=== PATIENT | male | born 1935 | race Caucasian/White ===

== ENCOUNTER 2023-05-13 01:01 | Inpatient (IN) | payer MEDICARE ==
[~2023-05-13] VITALS: Ht 182.9 cm; Wt 70.1 kg
[2023-05-13 03:00] VITALS: BP 135/99; TEMP 97.7; O2SAT 95
[2023-05-13] MEDS ORDERED: DUTA0.5C PO (03:23)
[2023-05-13] MEDS ORDERED: ESCI10TA PO (03:32)
[2023-05-13] MEDS ORDERED: LORA-259 PO (03:35)
[2023-05-13] MEDS ORDERED: TAMS-12 PO (03:35)
[2023-05-13] MEDS ORDERED: FAMO-131 PO (03:37)
[2023-05-13] MEDS ORDERED: MEMA1CAP3 PO (03:37)
[2023-05-13] MEDS ORDERED: PRAV20TA4 PO (03:40)
[2023-05-13] MEDS ORDERED: TRAZ-182 PO (03:41)
[2023-05-13] MEDS ORDERED: IV 1/2NS 1000 ML 1,000 ML IV PRN (07:00)
[2023-05-13] MEDS ORDERED: Z GUARD REMEDY 4 OZ OINT TP PRN (07:00)
[2023-05-13] MEDS ORDERED: MAG HYDROX/AL HYDROX/SIMETH 30 ML UDC PO PRN (07:00)
[2023-05-13] MEDS ORDERED: ONDANSETRON HCL/PF 4 MG/2 ML VIAL IVP PRN (07:00)
[2023-05-13] MEDS ORDERED: MAGNESIUM HYDROXIDE 30 ML UDC PO PRN (07:00)
[2023-05-13] MEDS ORDERED: ACETAMINOPHEN 325 MG TABLET PO PRN (07:00)
[2023-05-13 08:00] VITALS: BP 124/71; TEMP 98.8; O2SAT 95
[2023-05-13] MEDS: ATORVASTATIN 10 MG TABLET PO SCH (08:17)
[2023-05-13] MEDS: PANTOPRAZOLE 40 MG TABLET.DR PO SCH (08:17)
[2023-05-13] MEDS: DUTASTERIDE (0.5 MG) 0.5 MG CAPSULE PO SCH (08:17)
[2023-05-13] MEDS ORDERED: TAMSULOSIN 0.4 MG CAP.SR.24H PO SCH (09:00)
[2023-05-13] MEDS ORDERED: MULT-213 PO (09:20)
[2023-05-13 10:36] LABS: BASOPHILS % (AUTO) 0.3 % (0.0-2.0); EOSINOPHILS # (AUTO) 0.2 K/uL (0.0-0.7); HEMATOCRIT 46 % (39-51); HEMOGLOBIN 14.7 g/dL (13.5-17.5); LYMPHOCYTES % (AUTO) 33.6 % (20.0-44.0); MEAN CORPUSCULAR HEMOGLOBIN 32 PG (26.0-33.0); MEAN CORPUSCULAR HGB CONC 32 g/dl (31.0-36.0); MEAN CORPUSCULAR VOLUME 98 fL (80-96); MONOCYTES # (AUTO) 1.1 K/uL (0.1-1.30); MONOCYTES % (AUTO) 7.1 % (2.0-12.0); NEUTROPHILS # (AUTO) 8.7 K/uL (1.8-8.9); PLATELET COUNT (AUTO) 330 K/uL (150-450); RED BLOOD CELL COUNT(AUTO) 4.63 MIL/uL (4.5-6.0); RED CELL DISTRIBUTION WIDTH 13.1 % (11.5-15.0); WHITE BLOOD COUNT (AUTO) 14.9 K/uL (4.3-11.0)
[2023-05-13 11:16] LABS: ALANINE AMINOTRANSFERASE 58 U/L (12-78); ALKALINE PHOSPHATASE 122 U/L (46-116); ASPARTATE AMINOTRANSFERASE 32 U/L (15-37); BILIRUBIN,TOTAL 0.6 mg/dL (0.2-1.0); CALCIUM, SERUM 9.3 mg/dL (8.5-10.1); CARBON DIOXIDE 28 mmol/L (21-32); CHLORIDE 124 mmol/L (98-107); CREATININE 1.1 mg/dL (0.6-1.3); GLUCOSE 99 mg/dL (74-106); MAGNESIUM 2.2 mg/dL (1.8-2.4); PHOSPHORUS 3.7 mg/dL (2.5-4.9); POTASSIUM 3.7 mmol/L (3.5-5.1); TOTAL PROTEIN, SERUM 6.6 g/dL (6.4-8.2); UREA NITROGEN, BLOOD 40 mg/dL (7-18)
[2023-05-13 11:22] LABS: SODIUM SERUM 160 mmol/L (136-145)
[2023-05-13 12:00] VITALS: BP 120/70; TEMP 98.4; O2SAT 99
[2023-05-13] MEDS: IV D5W 1,000 ML IV PRN ×2 (12:49→22:12)
[2023-05-13 16:00] VITALS: BP 110/91; TEMP 98.6; O2SAT 91
[2023-05-13 20:00] VITALS: BP 147/77; TEMP 98.6; O2SAT 94
[2023-05-14] VITALS: BP 143/78; TEMP 97.7; O2SAT 98
[2023-05-14 04:00] VITALS: BP 151/78; TEMP 97.7; O2SAT 93
[2023-05-14 07:16] LABS: BASOPHILS % (AUTO) 0.2 % (0.0-2.0); EOSINOPHILS # (AUTO) 0.2 K/uL (0.0-0.7); EOSINOPHILS % (AUTO) 1.8 % (0.0-6.0); HEMATOCRIT 45 % (39-51); HEMOGLOBIN 14.1 g/dL (13.5-17.5); LYMPHOCYTES # (AUTO) 4.8 K/uL (0.8-4.8); LYMPHOCYTES % (AUTO) 36.3 % (20.0-44.0); MEAN CORPUSCULAR HEMOGLOBIN 32 PG (26.0-33.0); MEAN CORPUSCULAR HGB CONC 31 g/dl (31.0-36.0); MEAN CORPUSCULAR VOLUME 102 fL (80-96); MONOCYTES % (AUTO) 7.8 % (2.0-12.0); NEUTROPHILS # (AUTO) 7.1 K/uL (1.8-8.9); NEUTROPHILS % (AUTO) 53.9 % (43.0-81.0); PLATELET COUNT (AUTO) 301 K/uL (150-450); RED CELL DISTRIBUTION WIDTH 13.8 % (11.5-15.0); WHITE BLOOD COUNT (AUTO) 13.2 K/uL (4.3-11.0)
[2023-05-14 07:51] LABS: CALCIUM, SERUM 8.9 mg/dL (8.5-10.1); PHOSPHORUS 3.4 mg/dL (2.5-4.9); POTASSIUM 3.8 mmol/L (3.5-5.1)
[2023-05-14 08:00] VITALS: BP 138/85; TEMP 98.4; O2SAT 92
[2023-05-14 08:39] LABS: THYROID STIMULATING HORMONE 2.172 uIU/mL (0.358-3.74); URIC ACID 5.2 mg/dL (2.6-7.2)
[2023-05-14] MEDS: PANTOPRAZOLE 40 MG TABLET.DR PO SCH (08:51)
[2023-05-14] MEDS: ATORVASTATIN 10 MG TABLET PO SCH (08:51)
[2023-05-14] MEDS: DUTASTERIDE (0.5 MG) 0.5 MG CAPSULE PO SCH (08:51)
[2023-05-14] MEDS: IV D5W 1,000 ML IV PRN ×2 (09:00→17:51)
[2023-05-14] MEDS: TAMSULOSIN 0.4 MG CAP.SR.24H PO SCH (09:07)
[2023-05-14] MEDS: ENOXAPARIN SODIUM 40 MG/0.4 ML DISP.SYRIN SQ SCH (12:11)
[2023-05-14 16:00] VITALS: BP 155/79; TEMP 98.4; O2SAT 95
[2023-05-14 19:00] VITALS: BP 157/86; TEMP 98; O2SAT 95
[2023-05-14 20:21] LABS: CREATININE, URINE 85.4 MG/DL (30.0-125.0); URINE TOTAL PROTEIN 15.1 mg/dL (0-11.9)
[2023-05-15] MEDS: IV D5W 1,000 ML IV PRN ×2 (03:48→16:17)
[2023-05-15 08:00] VITALS: BP 150/77; TEMP 97.5; O2SAT 96
[2023-05-15 08:42] LABS: BASOPHILS % (AUTO) 0.2 % (0.0-2.0); EOSINOPHILS # (AUTO) 0.2 K/uL (0.0-0.7); EOSINOPHILS % (AUTO) 1.4 % (0.0-6.0); HEMATOCRIT 43 % (39-51); HEMOGLOBIN 14.1 g/dL (13.5-17.5); LYMPHOCYTES % (AUTO) 38.6 % (20.0-44.0); MEAN CORPUSCULAR HEMOGLOBIN 32 PG (26.0-33.0); MEAN CORPUSCULAR HGB CONC 33 g/dl (31.0-36.0); MEAN CORPUSCULAR VOLUME 97 fL (80-96); MONOCYTES # (AUTO) 0.9 K/uL (0.1-1.30); MONOCYTES % (AUTO) 6.7 % (2.0-12.0); NEUTROPHILS # (AUTO) 6.9 K/uL (1.8-8.9); NEUTROPHILS % (AUTO) 53.1 % (43.0-81.0); PLATELET COUNT (AUTO) 312 K/uL (150-450); RED BLOOD CELL COUNT(AUTO) 4.47 MIL/uL (4.5-6.0); RED CELL DISTRIBUTION WIDTH 12.9 % (11.5-15.0)
[2023-05-15] MEDS: TAMSULOSIN 0.4 MG CAP.SR.24H PO SCH (08:46)
[2023-05-15] MEDS: ATORVASTATIN 10 MG TABLET PO SCH (08:47)
[2023-05-15] MEDS: ENOXAPARIN SODIUM 40 MG/0.4 ML DISP.SYRIN SQ SCH (08:47)
[2023-05-15] MEDS: DUTASTERIDE (0.5 MG) 0.5 MG CAPSULE PO SCH (08:47)
[2023-05-15] MEDS: PANTOPRAZOLE 40 MG TABLET.DR PO SCH (08:50)
[2023-05-15 08:54] LABS: ALANINE AMINOTRANSFERASE 62 U/L (12-78); ALBUMIN 2.8 g/dL (3.4-5.0); ALKALINE PHOSPHATASE 125 U/L (46-116); ASPARTATE AMINOTRANSFERASE 38 U/L (15-37); BILIRUBIN,TOTAL 1.3 mg/dL (0.2-1.0); CALCIUM, SERUM 8.6 mg/dL (8.5-10.1); CARBON DIOXIDE 26 mmol/L (21-32); CHLORIDE 107 mmol/L (98-107); CREATININE 0.9 mg/dL (0.6-1.3); GLUCOSE 116 mg/dL (74-106); MAGNESIUM 1.9 mg/dL (1.8-2.4); PHOSPHORUS 3.1 mg/dL (2.5-4.9); POTASSIUM 3.6 mmol/L (3.5-5.1); SODIUM SERUM 140 mmol/L (136-145); TOTAL PROTEIN, SERUM 6.1 g/dL (6.4-8.2); UREA NITROGEN, BLOOD 17 mg/dL (7-18)
[2023-05-15 16:00] VITALS: BP 113/63; TEMP 98.3; O2SAT 99
[2023-05-15] MEDS: ENSURE ENLIVE CHOC 237 ML CAN PO SCH (17:00)
[2023-05-15 20:00] VITALS: BP 148/92; TEMP 97.7; O2SAT 96
[2023-05-16] MEDS: IV D5W 1,000 ML IV PRN ×2 (04:57→21:18)
[2023-05-16 05:50] LABS: APPEARANCE,URINE CLEAR (CLEAR); BILIRUBIN,URINE NEGATIVE (NEGATIVE); BLOOD, URINE NEGATIVE Ery/uL (NEGATIVE); COLOR,URINE YELLOW (YELLOW); KETONES,URINE NEGATIVE (NEGATIVE); LEUKOCYTE ESTERASE ,URINE NEGATIVE (NEGATIVE); NITRITE, URINE NEGATIVE (NEGATIVE); PH,URINE 6.5 (5.0-8.0); PROTEIN,URINE NEGATIVE (NEGATIVE); UGLUCOSE NEGATIVE (NEGATIVE)
[2023-05-16 06:40] LABS: BASOPHILS % (AUTO) 0.3 % (0.0-2.0); EOSINOPHILS # (AUTO) 0.2 K/uL (0.0-0.7); EOSINOPHILS % (AUTO) 1.4 % (0.0-6.0); HEMATOCRIT 44 % (39-51); HEMOGLOBIN 14.6 g/dL (13.5-17.5); LYMPHOCYTES # (AUTO) 4.4 K/uL (0.8-4.8); LYMPHOCYTES % (AUTO) 37.6 % (20.0-44.0); MEAN CORPUSCULAR HEMOGLOBIN 32 PG (26.0-33.0); MEAN CORPUSCULAR HGB CONC 33 g/dl (31.0-36.0); MEAN CORPUSCULAR VOLUME 95 fL (80-96); MONOCYTES # (AUTO) 1.1 K/uL (0.1-1.30); MONOCYTES % (AUTO) 9.1 % (2.0-12.0); NEUTROPHILS % (AUTO) 51.6 % (43.0-81.0); PLATELET COUNT (AUTO) 315 K/uL (150-450); RED CELL DISTRIBUTION WIDTH 12.4 % (11.5-15.0); WHITE BLOOD COUNT (AUTO) 11.7 K/uL (4.3-11.0)
[2023-05-16 07:20] LABS: ALBUMIN 2.8 g/dL (3.4-5.0); BILIRUBIN,TOTAL 1.2 mg/dL (0.2-1.0); CALCIUM, SERUM 9.1 mg/dL (8.5-10.1); PHOSPHORUS 3.2 mg/dL (2.5-4.9); POTASSIUM 3.5 mmol/L (3.5-5.1); TOTAL PROTEIN, SERUM 6.2 g/dL (6.4-8.2)
[2023-05-16 08:00] VITALS: BP 146/74; TEMP 98.2; O2SAT 94
[2023-05-16] MEDS: PANTOPRAZOLE 40 MG TABLET.DR PO SCH (08:09)
[2023-05-16] MEDS: ENSURE ENLIVE CHOC 237 ML CAN PO SCH ×2 (08:09→17:19)
[2023-05-16] MEDS: DUTASTERIDE (0.5 MG) 0.5 MG CAPSULE PO SCH (08:25)
[2023-05-16] MEDS: TAMSULOSIN 0.4 MG CAP.SR.24H PO SCH (08:26)
[2023-05-16] MEDS: ATORVASTATIN 10 MG TABLET PO SCH (08:26)
[2023-05-16] MEDS: ENOXAPARIN SODIUM 40 MG/0.4 ML DISP.SYRIN SQ SCH (12:24)
[2023-05-16 16:00] VITALS: BP 139/82; TEMP 98.1; O2SAT 94
[2023-05-16 20:00] VITALS: BP 143/86; TEMP 98.6; O2SAT 94
[2023-05-16 22:29] VITALS: BP 143/86; TEMP 98.6; O2SAT 94
[2023-05-17 06:17] LABS: BASOPHILS % (AUTO) 0.2 % (0.0-2.0); EOSINOPHILS # (AUTO) 0.1 K/uL (0.0-0.7); HEMATOCRIT 46 % (39-51); HEMOGLOBIN 15.1 g/dL (13.5-17.5); LYMPHOCYTES # (AUTO) 4.6 K/uL (0.8-4.8); LYMPHOCYTES % (AUTO) 39.2 % (20.0-44.0); MEAN CORPUSCULAR HEMOGLOBIN 32 PG (26.0-33.0); MEAN CORPUSCULAR HGB CONC 33 g/dl (31.0-36.0); MEAN CORPUSCULAR VOLUME 97 fL (80-96); MONOCYTES % (AUTO) 8.4 % (2.0-12.0); NEUTROPHILS % (AUTO) 51.2 % (43.0-81.0); PLATELET COUNT (AUTO) 239 K/uL (150-450); RED BLOOD CELL COUNT(AUTO) 4.69 MIL/uL (4.5-6.0); RED CELL DISTRIBUTION WIDTH 12.9 % (11.5-15.0); WHITE BLOOD COUNT (AUTO) 11.8 K/uL (4.3-11.0)
[2023-05-17 06:38] LABS: CALCIUM, SERUM 9.1 mg/dL (8.5-10.1); CARBON DIOXIDE 22 mmol/L (21-32); CHLORIDE 103 mmol/L (98-107); CREATININE 0.9 mg/dL (0.6-1.3); GLUCOSE 116 mg/dL (74-106); SODIUM SERUM 136 mmol/L (136-145); UREA NITROGEN, BLOOD 15 mg/dL (7-18)
[2023-05-17 08:00] VITALS: BP 135/75; TEMP 98.6; O2SAT 97
[2023-05-17] MEDS: DUTASTERIDE (0.5 MG) 0.5 MG CAPSULE PO SCH (08:04)
[2023-05-17] MEDS: ATORVASTATIN 10 MG TABLET PO SCH (08:04)
[2023-05-17] MEDS: TAMSULOSIN 0.4 MG CAP.SR.24H PO SCH (08:04)
[2023-05-17] MEDS: PANTOPRAZOLE 40 MG TABLET.DR PO SCH (08:04)
[2023-05-17] MEDS: ENSURE ENLIVE CHOC 237 ML CAN PO SCH ×2 (08:05→17:07)
[2023-05-17] MEDS ORDERED: LORAZEPAM INJ 2 MG/ML VIAL IV PRN ×2 (10:30→14:00)
[2023-05-17] MEDS: ENOXAPARIN SODIUM 40 MG/0.4 ML DISP.SYRIN SQ SCH (12:51)
[2023-05-17 16:00] VITALS: BP 143/81; TEMP 98.6; O2SAT 89
[2023-05-17] MEDS: MEMANTINE HCL 5 MG TABLET PO SCH (17:42)
[2023-05-17 20:00] VITALS: BP 136/83; TEMP 97.7; O2SAT 95
[2023-05-17] MEDS ORDERED: DONEPEZIL 5 MG TABLET PO SCH (22:00)
[2023-05-18 08:00] VITALS: BP 109/97; TEMP 98.4; O2SAT 95
[2023-05-18] MEDS: ENSURE ENLIVE CHOC 237 ML CAN PO SCH (08:31)
[2023-05-18] MEDS: PANTOPRAZOLE 40 MG TABLET.DR PO SCH (08:31)
[2023-05-18] MEDS: DUTASTERIDE (0.5 MG) 0.5 MG CAPSULE PO SCH (08:31)
[2023-05-18] MEDS: MEMANTINE HCL 5 MG TABLET PO SCH (08:31)
[2023-05-18] MEDS: TAMSULOSIN 0.4 MG CAP.SR.24H PO SCH (08:31)
[2023-05-18] MEDS: ATORVASTATIN 10 MG TABLET PO SCH (08:31)
[2023-05-18] MEDS ORDERED: MULTIVIT W/MINERALS 1 TAB TABLET PO SCH (09:00)
[2023-05-18] MEDS ORDERED: QUETIAPINE FUMARATE 25 MG TABLET PO SCH (10:30)
[2023-05-18] MEDS: ENOXAPARIN SODIUM 40 MG/0.4 ML DISP.SYRIN SQ SCH (11:34)
[2023-05-18] MEDS ORDERED: Quetiapine Fumarate PO (13:33)
[2023-05-18] MEDS ORDERED: DONE5TAB34 PO (13:33)
[2023-05-18] MEDS ORDERED: PANT40TA49 PO (13:33)
[2023-05-18] MEDS ORDERED: LACT-54 PO (13:33)
[2023-05-18] MEDS ORDERED: Tamsulosin PO (13:33)
== END 2023-05-18 15:00 | DRG 640 ==
LOC: TELE 02:40 → MED 05-14 15:02
PROVIDERS: ADMIT Nurse Practitioner Acute Care; ATTEND Nurse Practitioner Acute Care
DX: E86.0 Dehydration (principal); G93.41 Metabolic encephalopathy; E44.0 Moderate protein-calorie malnutrition; E87.0 Hyperosmolality and hypernatremia; G30.9 Alzheimer's disease, unspecified; F02.C0 Dementia in other diseases classified elsewhere, severe, without behavioral disturbance, psychotic disturbance, mood disturbance, and anxiety; N40.0 Benign prostatic hyperplasia without lower urinary tract symptoms; Z86.73 Personal history of transient ischemic attack (TIA), and cerebral infarction without residual deficits; Z85.038 Personal history of other malignant neoplasm of large intestine; D72.829 Elevated white blood cell count, unspecified; Z86.79 Personal history of other diseases of the circulatory system; E86.1 Hypovolemia; Z78.1 Physical restraint status; Z79.899 Other long term (current) drug therapy; Z88.0 Allergy status to penicillin; Z88.1 Allergy status to other antibiotic agents; E88.09 Other disorders of plasma-protein metabolism, not elsewhere classified; F29 Unspecified psychosis not due to a substance or known physiological condition; Z98.1 Arthrodesis status
CPT/HCPCS: 36415; 71045-TC; 80048-TC; 80053-TC; 80061-TC; 82570-TC; 83735-TC; 84100-TC; 84300-TC; 84443-TC; 84550-TC; 85025-TC; 87081-TC; 97110-TC; 97112-TC; 97530-TC; A4223; A4349; G0378; J1650; J2060; J3490; J7070

== ENCOUNTER 2024-02-12 16:50 | Emergency (ER) | payer MEDICARE, OTHER ==
[~2024-02-12] VITALS: Ht 180.3 cm; Wt 67.1 kg
[~2024-02-12 16:50] MED LIST: DONE5TAB34 PO; DUTA0.5C PO; ESCI10TA PO; FAMO-131 PO; LACT-54 PO; LORA-259 PO; MEMA1CAP3 PO; MULT-213 PO; PANT40TA49 PO; PRAV20TA4 PO; Quetiapine Fumarate PO; TAMS-12 PO; TRAZ-182 PO; Tamsulosin PO
[2024-02-12 21:51] VITALS: BP 125/66; TEMP 98.5; O2SAT 98
== END 2024-02-12 21:52 | disposition short-term general hospital (02) ==
LOC: ER 16:56
DX: S09.8XXA Other specified injuries of head, initial encounter (principal); R26.2 Difficulty in walking, not elsewhere classified; E78.5 Hyperlipidemia, unspecified; M47.9 Spondylosis, unspecified; Z85.038 Personal history of other malignant neoplasm of large intestine; Z87.448 Personal history of other diseases of urinary system; Z88.1 Allergy status to other antibiotic agents; Z86.59 Personal history of other mental and behavioral disorders; W18.39XA Other fall on same level, initial encounter; Y93.89 Activity, other specified; Y92.89 Other specified places as the place of occurrence of the external cause; Y99.8 Other external cause status
CPT/HCPCS: 70450-TC; 72125-TC